=== PATIENT | male | born 1960 | race African-American/Black ===

== ENCOUNTER 2017-03-20 15:23 | Inpatient (IN) | payer OTHER ==
[2017-03-20] MEDS ORDERED: MORPHINE IV ONE (17:38)
[2017-03-20] MEDS ORDERED: NACL 0.9% 1000 ML 1,000 ML IV ONE ×2 (17:38→21:12)
[2017-03-20] MEDS ORDERED: ZOFRAN ODT PO/SL ONE (17:38)
--- NOTE | 2017-03-20 17:40 | Emergency Department Report ---
Chief Complaint: Abdominal Pain Stated Complaint: ABD PAIN Time Seen by Provider: 03/20/17 17:11 - HPI History of Present Illness: Patient is a Syriac [place] gentleman and 56 years old who is presenting with epigastric pain patient states that prior to arrival approximately 2 hours ago after eating he started experiencing excruciating 10 out of 10 pain in the epigastrium. Patient states there is no radiation there is no nausea vomiting fever or diarrhea. Patient states it's a ripping tearing pain in the mid abdomen. The patient will have IV labs and CT ordered pain medicine has been given. - Exam Vital Signs: Vital Signs 03/20/17 15:32 Temperature 98.2 F Pulse Rate 70 Respiratory 18 Rate Blood Pressure 99/72 O2 Sat by Pulse 98 Oximetry MSE screening note: Focused history and physical exam performed. Due to findings the following was ordered: ED Disposition for MSE Condition: Stable
[2017-03-20 18:10] LABS: Basophils % (Auto) 0.4 % (0.0-1.8); Eosinophils % (Auto) 0.8 % (0.0-4.3); Hematocrit 43.1 % (35.5-45.6); Hemoglobin 14.1 gm/dl (11.8-15.2); Mean Corpuscular HGB Conc 33 % (32-34); Mean Corpuscular Hemoglobin 31 pg (28-32); Mean Corpuscular Volume 96 fl (84-94); Platelet Count 267 K/mm3 (140-440); Red Blood Count 4.48 M/mm3 (3.65-5.03); White Blood Count 16.2 K/mm3 (4.5-11.0)
[2017-03-20 18:29] LABS: Alanine Aminotransferase 95 units/L (7-56); Albumin 4.5 g/dL (3.9-5); Albumin/Globulin Ratio 1.6 %; Alkaline Phosphatase 89 units/L (35-129); Anion Gap 17 mmol/L; BUN/Creatinine Ratio 24; Blood Urea Nitrogen 17 mg/dL (9-20); Calcium 8.9 mg/dL (8.4-10.2); Carbon Dioxide 27 mmol/L (22-30); Chloride 99.2 mmol/L (98-107); Glucose 110 mg/dL (75-100); Lipase 28 units/L (13-60); Potassium 4.6 mmol/L (3.6-5.0); Sodium 139 mmol/L (137-145); Total Protein 7.3 g/dL (6.3-8.2)
[2017-03-20 18:31] LABS: Bilirubin,Direct 0.2 mg/dL (0-0.2); Bilirubin,Indirect 0.3 mg/dL
[2017-03-20] MEDS ORDERED: PROTONIX IV ONE (19:00)
[2017-03-20 19:37] LABS: Bilirubin,Urine NEG (Negative); Blood,Urine SM (Negative); Ketones,Urine NEG (Negative); Leukocyte Esterase,Urine NEG (Negative); Mucus,Urine 1+ /HPF; Nitrite,Urine NEG (Negative); Protein,Urine <15 mg/dL mg/dL (Negative); Urobilinogen,Urine < 2.0 mg/dL (<2.0)
--- NOTE | 2017-03-20 20:08 | Cat Scan Report ---
FINAL REPORT EXAM: CT ABDOMEN PELVIS W CON HISTORY: Abdominal Pain TECHNIQUE: Axial images were performed from the lung bases to the pubic symphysis. Multiplanar reformats are performed on the acquisition scanner. Comparison: None FINDINGS: There is mild bilateral basal atelectasis. Normal enhancement and appearance of the liver, spleen, pancreas, bilateral adrenal glands and bilateral kidneys. There is right renal lateral cortical scar. Gallbladder is thick-walled and edematous appearing. Aorta and mesenteric vessels are unremarkable. There is air-filled moderately distended small bowel in the left central abdomen with fluid-filled bowel proximally. Normal appendix right lower quadrant. Urinary bladder is moderately distended. Prostate is not enlarged. Trace pericholecystic fluid is seen on the delayed phase images. There is no ureteral stone identified. There is a T11 superior endplate compression fracture which appears old. There is no retroperitoneal or mesenteric adenopathy. IMPRESSION: Thick-walled gallbladder with trace pericholecystic fluid suggestive of acute cholecystitis. Correlate with labs and clinical symptoms/exam. Mildly dilated air and fluid-filled small bowel loops in the left central abdomen may represent focal ileus. There is no definite transition zone. Early small-bowel obstruction cannot be excluded. No other acute pathology. Old right renal cortical scar and T11 compression fracture.
--- NOTE | 2017-03-20 20:49 | Emergency Department Report ---
ED Abdominal Pain HPI - General Chief Complaint: Abdominal Pain Stated Complaint: ABD PAIN Time Seen by Provider: 03/20/17 17:11 Source: family Mode of arrival: Wheelchair Limitations: Language Barrier (family at bedside to translate) - History of Present Illness Initial Comments: Patient is a 56-year-old gentleman that presented to the ER with abdominal pain in the epigastric region. States the pain right now is at a 3 out of 10. However when the first started it was 10 out of 10. He states that the pain was worse with eating. Patient denies fever and chills. Patient states when he was having the pain he had some chest pain and difficulty breathing.. MD Complaint: abdominal pain Location: epigastric Radiation: none Migration to: no migration Severity scale (0 -10): 3 Quality: aching, sharp Consistency: constant Improves With: rest Worsens With: eating Associated Symptoms: denies other symptoms - Related Data Allergies Allergy/AdvReac Type Severity Reaction Status Date / Time No Known Allergies Allergy Unverified 03/20/17 15:32 ED Review of Systems ROS: Stated complaint: ABD PAIN Other details as noted in HPI Constitutional: denies: chills, fever Eyes: denies: eye pain, eye discharge, vision change ENT: denies: ear pain, throat pain Respiratory: shortness of breath. denies: cough, wheezing Cardiovascular: chest pain. denies: palpitations Endocrine: no symptoms reported Gastrointestinal: abdominal pain. denies: nausea, diarrhea Genitourinary: denies: urgency, dysuria Musculoskeletal: denies: back pain, joint swelling, arthralgia Skin: denies: rash, lesions Neurological: denies: headache, weakness, paresthesias Psychiatric: denies: anxiety, depression Hematological/Lymphatic: denies: easy bleeding, easy bruising ED Past Medical Hx - Past Medical History Previous Medical History?: No - Family History Family history: no significant - Social History Smoking Status: Current Every Day Smoker Substance Use Type: Alcohol ED Physical Exam - General Limitations: No Limitations General appearance: alert, in no apparent distress - Head Head exam: Present: atraumatic, normocephalic - Eye Eye exam: Present: normal appearance - ENT ENT exam: Present: mucous membranes moist - Neck Neck exam: Present: normal inspection - Respiratory Respiratory exam: Present: normal lung sounds bilaterally. Absent: respiratory distress - Cardiovascular Cardiovascular Exam: Present: regular rate, normal rhythm. Absent: systolic murmur, diastolic murmur, rubs, gallop - GI/Abdominal GI/Abdominal exam: Present: soft, tenderness (epigastric tenderness. Right upper quadrant tenderness), normal bowel sounds - Rectal Rectal exam: Present: deferred - Extremities Exam Extremities exam: Present: normal inspection - Back Exam Back exam: Present: normal inspection - Neurological Exam Neurological exam: Present: alert, oriented X3 - Psychiatric Psychiatric exam: Present: normal affect, normal mood - Skin Skin exam: Present: warm, dry, intact, normal color. Absent: rash ED Course Vital Signs 03/20/17 03/20/17 15:32 20:00 Temperature 98.2 F Pulse Rate 70 Respiratory 18 18 Rate Blood Pressure 99/72 O2 Sat by Pulse 98 98 Oximetry ED Medical Decision Making - Lab Data Result diagrams: 03/20/17 17:48 03/20/17 17:48 - EKG Data -: EKG Interpreted by Sc EKG shows normal: sinus rhythm Rate: normal - EKG Data Interpretation: no acute changes, normal EKG - Radiology Data Radiology results: report reviewed CT scan reviewed. Positive for acute cholecystitis. - Medical Decision Making All labs and diagnostics reviewed. Discussed plan with patient. General surgery Dr. Ramirez consulted. Dr. Ramirez agrees that findings are consistent with acute cholecystitis and wants hospitalists to admit. per dr ramirez, nothing by mouth and IV fluids and IV antibiotics. Will consult hospitalist for admission. Dr. Villalba accepted patient. Dr. Villalba to assume care - Differential Diagnosis cp. sob. acute rick. Critical care attestation.: If time is entered above; I have spent that time in minutes in the direct care of this critically ill patient, excluding procedure time. ED Disposition Clinical Impression: Acute cholecystitis, Chest pain, Shortness of breath Disposition: OP ADMIT IP TO THIS HOSP Is pt being admited?: Yes Does the pt Need Aspirin: No Time of Disposition: 21:11
[2017-03-20 21:26] LABS: Creatine Kinase MB 1.3 ng/mL (0.0-4.0)
[2017-03-20 21:31] LABS: Creatine Kinase 95 units/L (55-170)
[2017-03-20] MEDS ORDERED: DULCOLAX PR PRN (21:54)
[2017-03-20] MEDS ORDERED: TYLENOL PO PRN (21:54)
[2017-03-20] MEDS ORDERED: MILK OF MAGNESIA PO PRN (21:54)
[2017-03-20] MEDS ORDERED: ZOFRAN IV PRN (21:54)
--- NOTE | 2017-03-20 21:58 | History and Physical Report ---
History of Present Illness Date of examination: 03/20/17 History of present illness: 56 year old man with no medical problems come to the emergency room with complaints of epigastric and right upper quadrant pain that started today. He describes it as a sharp pain, intermittent every 3 minuts, intensity 7/10, no radiation and he cannot identify exacerbating or relieving factors. Also complain of Review Of Systems: Constitutional: no weight loss Ears, eyes, nose, mouth and throat: no nasal congestion, no nasal discharge, no sinus pressure, blurry vision, diplopia Neck: No neck pain or rigidity. Cardiovascular: No chest pain, palpitations Respiratory: No cough Gastrointestinal: No hematochezia Genitourinary : no dysuria, frequency , hematuria Musculoskeletal: no muscle ache Integumentary: no rash, no pruritis Neurological: no parathesias, focal weakness Endocrine: no cold or heat intolerance, no polyuria or polydipsia Hematologic/Lymphatic: no easy bruising, no easy bleeding, no gland swelling Allergic/Immunologic: no urticaria, no angioedema. PAST MEDICAL HISTORY:None PAST SURGICAL HISTORY: None FAMILY HISTORY: Hypertension SOCIAL HISTORY:Smoke 1 pack /day, social alcohol, no drugs Medications and Allergies Allergies Allergy/AdvReac Type Severity Reaction Status Date / Time No Known Allergies Allergy Unverified 03/20/17 15:32 Home Medications Medication Instructions Recorded Confirmed Last Taken Type Acetaminophen [Tylenol Extra 2 1000units PO DAILY 03/20/17 03/20/17 03/19/17 History Strength] Ibuprofen [Advil 100 MG tab] 1 each PO DAILY 03/20/17 03/20/17 Unknown History Active Meds: Active Medications Sodium Chloride (Nacl 0.9% 1000 Ml) 1,000 mls @ 250 mls/hr IV ONCE ONE Stop: 03/21/17 01:11 Piperacillin Sod/Tazobactam Sod (Zosyn/Ns 3.375gm/50ml) 3.375 gm in 50 mls @ 100 mls/hr IV Q6HR BASILIO Exam - Physical Exam Narrative exam: Gen. appearance: Patient lying in bed in no acute distress HEENT: Normocephalic/atraumatic, pupils equal round reactive to light, extra occular movement intact, no scleral icterus, no JVD or thyromegaly or nodule, neck is supple, mucous membrane moist, no erythema or exudate Heart: S1-S2, regular rate and rhythm Lungs: Clear to auscultation bilateral breathing comfortable Abdomen: Positive bowel sounds, tender in the epigastric, RUQ, nondistended, no organomegaly Extremities: No edema, cyanosis, clubbing Neuro:: Oriented 3 , cranial nerves II-12 intact, speech, motor intact Skin: No rash, nodules, warm dry - Constitutional Vitals: Temp Pulse Resp BP Pulse Ox 98.2 F 70 18 99/72 98 03/20/17 15:32 03/20/17 15:32 03/20/17 20:00 03/20/17 15:32 03/20/17 20:00 Results - Labs CBC & Chem 7: 03/20/17 17:48 03/20/17 17:48 Labs: Abnormal lab results 03/20/17 03/20/17 Range/Units 17:48 17:48 WBC 16.2 H (4.5-11.0) K/mm3 MCV 96 H (84-94) fl RDW 13.0 L (13.2-15.2) % [place] # 1.1 H (0.0-0.8) K/mm3 Seg Neutrophils % 77.2 H (40.0-70.0) % Seg Neutrophils # 12.5 H (1.8-7.7) K/mm3 Creatinine 0.7 L (0.8-1.5) mg/dL Glucose 110 H (75-100) mg/dL AST 169 H (5-40) units/L ALT 95 H (7-56) units/L - Imaging and Cardiology CT scan - abdomen: report reviewed CT scan - pelvis: report reviewed Assessment and Plan Assessment Acute cholecystitis PLan Admit to medicine Place on bowel rest, start IV fluid, zosyn, morphine Consult surgery, check cardiac enzymes Dvt prophalaxis
[2017-03-21] MEDS ORDERED: ZOSYN/NS 3.375GM/50ML 3.375 GM/50 ML BAG IV SCH
[2017-03-21] MEDS: ZOSYN/NS 3.375GM/50ML 3.375 GM/50 ML BAG IV SCH ×4 (00:39→21:00)
[2017-03-21] MEDS: MORPHINE IV PRN (01:48)
[2017-03-21 04:18] LABS: Basophils % (Auto) 0.8 % (0.0-1.8); Eosinophils % (Auto) 4.6 % (0.0-4.3); Hematocrit 38.9 % (35.5-45.6); Hemoglobin 12.6 gm/dl (11.8-15.2); Mean Corpuscular HGB Conc 32 % (32-34); Mean Corpuscular Hemoglobin 31 pg (28-32); Mean Corpuscular Volume 97 fl (84-94); Platelet Count 240 K/mm3 (140-440); Red Blood Count 4.03 M/mm3 (3.65-5.03); White Blood Count 8.9 K/mm3 (4.5-11.0)
[2017-03-21 04:35] LABS: Anion Gap 14 mmol/L; BUN/Creatinine Ratio 20; Blood Urea Nitrogen 12 mg/dL (9-20); Calcium 8.1 mg/dL (8.4-10.2); Carbon Dioxide 25 mmol/L (22-30); Chloride 105.9 mmol/L (98-107); Glucose 106 mg/dL (75-100); Sodium 141 mmol/L (137-145)
[2017-03-21 04:37] LABS: Creatine Kinase MB 1.2 ng/mL (0.0-4.0)
[2017-03-21 04:40] LABS: Creatine Kinase 87 units/L (55-170); Potassium 3.6 mmol/L (3.6-5.0)
[2017-03-21] MEDS: NACL 0.9% 1000 ML 1,000 ML IV SCH ×2 (05:31→12:37)
[2017-03-21] MEDS ORDERED: REGLAN IV PRN (08:28)
[2017-03-21] MEDS ORDERED: LOVENOX SUB-Q SCH ×2 (10:00)
--- NOTE | 2017-03-21 12:00 | Progress Note ---
Assessment and Plan Assessment and plan: Son Fabian was Hungarian bridge welder his number is [phone] Patient is a 56-year-old Hungarian speaking man with a history of tobacco dependency who presented with abdominal pains. CT abdomen and pelvis with contrast reported as thick wall gallbladder trace stacy-cholecystic fluid suggestive of acute cholecystitis. Correlate with labs and clinical symptoms, mild dilated air and fluid filled small bowel loops in the left central abdomen may represent focal ileus, there is no definite transition zone, early small bowel obstruction cannot be excluded, no other acute pathology, old right renal cortical scar and T11 compression fracture. -Acute cholecystitis: Treated with IV antibiotics, pending general surgery consultation, nothing by mouth and IV fluids -Ileus: Nothing by mouth -Tobacco dependency: Supervisor Sunglasses stopping -Incidental T11 compression fracture: Pain control -DVT prophylaxis: Subcutaneous heparin in anticipation for surgery History Interval history: Patient was seen and examined. Follow-up on current diagnosis/abdominal pain which is improved. Overnight uneventful. Patient denies any chest pain, shortness breath, nausea/vomiting or severe headaches. Imaging, nursing note, chart, labs and old chart reviewed. Discussed with patient. Hospitalist Physical - Physical exam Narrative exam: GEN: WDWN, NAD, AWAKE, ALERT, ORIENTATED 3 HEENT: NCAT, EOMI, PERRL, OP Clear NECK: supple, no adenopathy, no thyromegaly, no JVD CVS/HEART: RRR, NORMAL S1S2, NO JVD, pulses present bilaterally CHEST/LUNGS: CTA B, Symmetrical chest expansion, good air entry bilaterally GI/Abdomen: soft, nondistended, mild right-sided tenderness, good bowel sounds, no guarding or rebound /Bladder: no suprapubic tenderness, no CVA or paraspinal tenderness EXT/Skin: no c/c/e, no obvious rash MSK: FROM x 4 Neuro: CN 2-12 grossly intact, no new focal deficits Psych: calm - Constitutional Vitals: Temp Pulse Resp BP Pulse Ox 97.9 F 59 L 18 98/72 96 03/21/17 08:50 03/21/17 08:50 03/21/17 08:50 03/21/17 08:50 03/21/17 09:09 Results - Labs CBC & Chem 7: 03/21/17 03:35 03/21/17 03:35 Labs: Laboratory Last Values WBC 8.9 K/mm3 (4.5-11.0) 03/21/17 03:35 RBC 4.03 M/mm3 (3.65-5.03) 03/21/17 03:35 Hgb 12.6 gm/dl (11.8-15.2) 03/21/17 03:35 Hct 38.9 % (35.5-45.6) 03/21/17 03:35 MCV 97 fl (84-94) H 03/21/17 03:35 MCH 31 pg (28-32) 03/21/17 03:35 MCHC 32 % (32-34) 03/21/17 03:35 RDW 13.0 % (13.2-15.2) L 03/21/17 03:35 Plt Count 240 K/mm3 (140-440) 03/21/17 03:35 Lymph % (Auto) 32.0 % (13.4-35.0) 03/21/17 03:35 [place] % (Auto) 7.6 % (0.0-7.3) H 03/21/17 03:35 Eos % (Auto) 4.6 % (0.0-4.3) H 03/21/17 03:35 Baso % (Auto) 0.8 % (0.0-1.8) 03/21/17 03:35 Lymph # 2.8 K/mm3 (1.2-5.4) 03/21/17 03:35 [place] # 0.7 K/mm3 (0.0-0.8) 03/21/17 03:35 Eos # 0.4 K/mm3 (0.0-0.4) 03/21/17 03:35 Baso # 0.1 K/mm3 (0.0-0.1) 03/21/17 03:35 Seg Neutrophils % 55.0 % (40.0-70.0) 03/21/17 03:35 Seg Neutrophils # 4.9 K/mm3 (1.8-7.7) 03/21/17 03:35 Sodium 141 mmol/L (137-145) 03/21/17 03:35 Potassium 3.6 mmol/L (3.6-5.0) D 03/21/17 03:35 Chloride 105.9 mmol/L (98-107) 03/21/17 03:35 Carbon Dioxide 25 mmol/L (22-30) 03/21/17 03:35 Anion Gap 14 mmol/L 03/21/17 03:35 BUN 12 mg/dL (9-20) 03/21/17 03:35 Creatinine 0.6 mg/dL (0.8-1.5) L 03/21/17 03:35 Estimated GFR > 60 ml/min 03/21/17 03:35 BUN/Creatinine Ratio 20 % 03/21/17 03:35 Glucose 106 mg/dL (75-100) H 03/21/17 03:35 Calcium 8.1 mg/dL (8.4-10.2) L 03/21/17 03:35 Total Bilirubin 0.50 mg/dL (0.1-1.2) 03/20/17 17:48 Direct Bilirubin 0.2 mg/dL (0-0.2) 03/20/17 17:48 Indirect Bilirubin 0.3 mg/dL 03/20/17 17:48 AST 169 units/L (5-40) H 03/20/17 17:48 ALT 95 units/L (7-56) H 03/20/17 17:48 Alkaline Phosphatase 89 units/L (35-129) 03/20/17 17:48 Total Creatine Kinase 87 units/L (55-170) 03/21/17 03:35 CK-MB (CK-2) 1.2 ng/mL (0.0-4.0) 03/21/17 03:35 CK-MB (CK-2) Rel Index 1.3 (0-4) 03/21/17 03:35 Troponin T < 0.010 ng/mL (0.00-0.029) 03/21/17 03:35 Total Protein 7.3 g/dL (6.3-8.2) 03/20/17 17:48 Albumin 4.5 g/dL (3.9-5) 03/20/17 17:48 Albumin/Globulin Ratio 1.6 % 03/20/17 17:48 Lipase 28 units/L (13-60) 03/20/17 17:48 Urine Color Yellow (Yellow) 03/20/17 18:07 Urine Turbidity Slightly-cloudy (Clear) 03/20/17 18:07 Urine pH 7.0 (5.0-7.0) 03/20/17 18:07 Ur Specific [place] 1.020 (1.003-1.030) 03/20/17 18:07 Urine Protein <15 mg/dl mg/dL (Negative) 03/20/17 18:07 Urine Glucose (UA) Neg mg/dL (Negative) 03/20/17 18:07 Urine Ketones Neg mg/dL (Negative) 03/20/17 18:07 Urine Blood Sm (Negative) 03/20/17 18:07 Urine Nitrite Neg (Negative) 03/20/17 18:07 Urine Bilirubin Neg (Negative) 03/20/17 18:07 Urine Urobilinogen < 2.0 mg/dL (<2.0) 03/20/17 18:07 Ur Leukocyte Esterase Neg (Negative) 03/20/17 18:07 Urine WBC (Auto) 1.0 /HPF (0.0-6.0) 03/20/17 18:07 Urine RBC (Auto) 4.0 /HPF (0.0-6.0) 03/20/17 18:07 Urine Mucus 1+ /HPF 03/20/17 18:07
--- NOTE | 2017-03-21 13:17 | Progress Note ---
Assessment and Plan Full consult dictated 56 y/o male admitted with epig abd pain. r/o acute cholecystitis on CT Abd soft, non tender at present. pt has not asked for pain meds reviewed CT with radiology. rec GB US and HIDA. labs as below wbc down with Zosyn will order US and HIDA Keep NPO will follow History of Present Illness Date of examination: 03/20/17 History of present illness: 56 year old man with no medical problems come to the emergency room with complaints of epigastric and right upper quadrant pain that started today. He describes it as a sharp pain, intermittent every 3 minuts, intensity 7/10, no radiation and he cannot identify exacerbating or relieving factors. Also complain of Review Of Systems: Constitutional: no weight loss Ears, eyes, nose, mouth and throat: no nasal congestion, no nasal discharge, no sinus pressure, blurry vision, diplopia Neck: No neck pain or rigidity. Cardiovascular: No chest pain, palpitations Respiratory: No cough Gastrointestinal: No hematochezia Genitourinary : no dysuria, frequency , hematuria Musculoskeletal: no muscle ache Integumentary: no rash, no pruritis Neurological: no parathesias, focal weakness Endocrine: no cold or heat intolerance, no polyuria or polydipsia Hematologic/Lymphatic: no easy bruising, no easy bleeding, no gland swelling Allergic/Immunologic: no urticaria, no angioedema. PAST MEDICAL HISTORY:None PAST SURGICAL HISTORY: None FAMILY HISTORY: Hypertension SOCIAL HISTORY:Smoke 1 pack /day, social alcohol, no drugs Selected Entries 03/21/17 08:50 Temperature 97.9 F Pulse Rate 59 L Blood Pressure 98/72 Laboratory Tests 03/20/17 03/21/17 03/21/17 17:48 03:35 03:35 WBC 8.9 Hgb 12.6 Hct 38.9 Sodium 141 Potassium 3.6 D Chloride 105.9 Carbon Dioxide 25 BUN 12 Creatinine 0.6 L Total Bilirubin 0.50 Direct Bilirubin 0.2 Indirect Bilirubin 0.3 AST 169 H ALT 95 H Alkaline Phosphatase 89 Objective Vital Signs - 12hr 03/21/17 03/21/17 03/21/17 08:15 08:50 09:09 Temperature 97.9 F Pulse Rate 59 L Respiratory 18 Rate Blood Pressure 98/72 O2 Sat by Pulse 94 91 96 Oximetry - Labs 03/21/17 03:35 03/21/17 03:35 Diabetes panel 03/20/17 03/21/17 Range/Units 17:48 03:35 Sodium 139 141 (137-145) mmol/L Potassium 4.6 3.6 D (3.6-5.0) mmol/L Chloride 99.2 105.9 (98-107) mmol/L Carbon Dioxide 27 25 (22-30) mmol/L BUN 17 12 (9-20) mg/dL Creatinine 0.7 L 0.6 L (0.8-1.5) mg/dL Glucose 110 H 106 H (75-100) mg/dL Calcium 8.9 8.1 L (8.4-10.2) mg/dL AST 169 H (5-40) units/L ALT 95 H (7-56) units/L Alkaline Phosphatase 89 (35-129) units/L Total Protein 7.3 (6.3-8.2) g/dL Albumin 4.5 (3.9-5) g/dL Calcium panel 03/20/17 03/21/17 Range/Units 17:48 03:35 Calcium 8.9 8.1 L (8.4-10.2) mg/dL Albumin 4.5 (3.9-5) g/dL Pituitary panel 03/20/17 03/21/17 Range/Units 17:48 03:35 Sodium 139 141 (137-145) mmol/L Potassium 4.6 3.6 D (3.6-5.0) mmol/L Chloride 99.2 105.9 (98-107) mmol/L Carbon Dioxide 27 25 (22-30) mmol/L BUN 17 12 (9-20) mg/dL Creatinine 0.7 L 0.6 L (0.8-1.5) mg/dL Glucose 110 H 106 H (75-100) mg/dL Calcium 8.9 8.1 L (8.4-10.2) mg/dL Adrenal panel 03/20/17 03/21/17 Range/Units 17:48 03:35 Sodium 139 141 (137-145) mmol/L Potassium 4.6 3.6 D (3.6-5.0) mmol/L Chloride 99.2 105.9 (98-107) mmol/L Carbon Dioxide 27 25 (22-30) mmol/L BUN 17 12 (9-20) mg/dL Creatinine 0.7 L 0.6 L (0.8-1.5) mg/dL Glucose 110 H 106 H (75-100) mg/dL Calcium 8.9 8.1 L (8.4-10.2) mg/dL Total Bilirubin 0.50 (0.1-1.2) mg/dL AST 169 H (5-40) units/L ALT 95 H (7-56) units/L Alkaline Phosphatase 89 (35-129) units/L Total Protein 7.3 (6.3-8.2) g/dL Albumin 4.5 (3.9-5) g/dL
[2017-03-21] MEDS ORDERED: WATER FOR INJ (PF) 10 ML ONE (14:07)
[2017-03-21] MEDS ORDERED: KINEVAC IV ONE ×2 (14:08→14:20)
[2017-03-21] MEDS ORDERED: WATER FOR INJ (PF) IV ONE (15:00)
--- NOTE | 2017-03-21 15:50 | Nuclear Medicine Report ---
NUCLEAR MEDICINE HEPATOBILIARY SCAN: 03/21/17 13:17:00 CLINICAL: Right upper quadrant abdominal pain. TECHNIQUE: 5.0mCi technetium 99m Choletec was injected intravenously. Serial images were obtained up to one hour. At one hour, 1.3 mcg of CCK was injected intravenously by slow infusion. The patient experienced the same abdominal pain with injection of the CCK. A gallbladder ejection fraction was calculated. FINDINGS: Normal activity in the liver, bile ducts and small bowel. Normal gallbladder activity is apparent at ten minutes. However, the gallbladder ejection fraction is abnormally low at 34%. IMPRESSION: No acute cholecystitis. However, abnormal gallbladder ejection fraction consistent with gallbladder dyskinesis or chronic cholecystitis.
[2017-03-21] MEDS ORDERED: D5W/0.45% NACL/KCL 30 MEQ 30 MEQ/1,000 ML BAG IV SCH (18:00)
--- NOTE | 2017-03-22 00:45 | Ultrasound Report ---
FINAL REPORT PROCEDURE: US ABDOMEN LIMITED TECHNIQUE: Real-time sonography was performed of the right upper quadrant with image documentation. CPT 93340 HISTORY: r/o cholecystitis COMPARISON: Prior CT scan abdomen and pelvis 03/20/2017 FINDINGS: The leon of the gallbladder appear diffusely thickened. There are small echogenic foci with ring down artifact suggesting adenomyomatosis of the gallbladder. No formed gallstones are seen. No ascites is visualized. Common bile duct is normal caliber measuring 6 millimeters. Intrahepatic ducts are not distended. Liver echogenicity mildly increased suggesting fatty infiltration. The liver is otherwise unremarkable. Visualized portions of the pancreas appear normal. Proximal abdominal aorta also appears normal. Renal cortical cyst measuring 1.4 centimeters seen in the renal cortex of the right kidney. The right kidney is otherwise unremarkable. IMPRESSION: Wall thickening is seen diffusely in the gallbladder with multiple areas of ring down artifact consistent with adenomyomatosis of the gallbladder. No definite gallstones are visualized. Renal cortical cyst visualize right kidney. Mild fatty infiltration of the liver. No other abnormalities are identified.
--- NOTE | 2017-03-22 03:08 | Consultation ---
REASON FOR CONSULTATION: Rule out acute cholecystitis. HISTORY OF PRESENT ILLNESS: The patient is a pleasant 56-year-old gentleman who does not speak [place]. Family is also in the room, but limited [place]. Thus, much of the history is obtained from the chart. The patient is a 56-year-old gentleman who was admitted through the Emergency Room last night with recent onset of epigastric abdominal pain. Denies any nausea or vomiting. PAST MEDICAL HISTORY: Essentially negative. PAST SURGICAL HISTORY: Negative. ALLERGIES: No known allergies. MEDICATIONS: No medications as far as I can tell. FAMILY HISTORY: Negative. SOCIAL HISTORY: Smokes a pack a day and occasional ethanol intake. No drugs. PHYSICAL EXAMINATION: GENERAL: At this time reveals the patient to be awake, alert, comfortable. States he is feeling " than from when he was admitted last night. VITAL SIGNS: Show him to be afebrile with a temperature 97.9, blood pressure is 106/75, pulse of 61, respirations of 18. HEENT: Pupils are equal and reactive to light and accommodation. Sclerae are nonicteric. ABDOMEN: Examination of the abdomen reveals it to be flat and soft at this time. No tenderness can be elicited at present. Bowel sounds are present. LABORATORY DATA: Lab work at present includes a CBC, which shows a white count of 8.9 down from 16.2 on admission. The patient was started on Zosyn on admission. H and H is 12.6 and 38.9. Electrolytes were essentially normal including sodium 141, potassium 3.6, chloride 105, BUN is 12, creatinine is 0.6. LFTs are also essentially normal including a total bilirubin of 0.5, direct of 0.2. AST is 169 and ALT 95 both just slightly elevated. Alkaline phosphatase is 89. A CT scan of the abdomen was done, which I reviewed with the radiologist. There is some thickness of the gallbladder wall, but it is borderline as per Radiology. They are recommending to proceed with a gallbladder ultrasound and a HIDA scan. IMPRESSION: At this time is that of a 56-year-old healthy gentleman, rule out acute cholecystitis. PLAN: I would keep the patient n.p.o. Change IV fluids to D5 half with 30 of K to run in 125 mL an hour. Continue Zosyn. We will go ahead and order the HIDA scan with ejection fraction as well as a gallbladder ultrasound. We will follow closely with you. Thank you very much for the consultation. JOB# [id number] PHILIP/CAIN
[2017-03-22 05:00] LABS: Hematocrit 38.1 % (35.5-45.6); Hemoglobin 12.7 gm/dl (11.8-15.2); Mean Corpuscular HGB Conc 33 % (32-34); Mean Corpuscular Hemoglobin 32 pg (28-32); Mean Corpuscular Volume 96 fl (84-94); Platelet Count 225 K/mm3 (140-440); Red Blood Count 3.97 M/mm3 (3.65-5.03); Red Cell Distribution Width 12.6 % (13.2-15.2); White Blood Count 7.4 K/mm3 (4.5-11.0)
[2017-03-22 05:17] LABS: INR 0.96 (0.87-1.13)
[2017-03-22 05:18] LABS: Partial Thromboplastin Time 32.2 Sec. (24.2-36.6)
[2017-03-22 05:21] LABS: Alanine Aminotransferase 44 units/L (7-56); Albumin 3.4 g/dL (3.9-5); Albumin/Globulin Ratio 1.5 %; Alkaline Phosphatase 70 units/L (35-129); Amylase 54 units/L (27-131); Anion Gap 14 mmol/L; BUN/Creatinine Ratio 14; Blood Urea Nitrogen 10 mg/dL (9-20); Calcium 8.1 mg/dL (8.4-10.2); Carbon Dioxide 25 mmol/L (22-30); Chloride 105.3 mmol/L (98-107); Glucose 120 mg/dL (75-100); Potassium 3.7 mmol/L (3.6-5.0); Sodium 141 mmol/L (137-145); Total Protein 5.6 g/dL (6.3-8.2)
[2017-03-22] MEDS: ZOSYN/NS 3.375GM/50ML 3.375 GM/50 ML BAG IV SCH ×2 (05:46→15:33)
[2017-03-22] MEDS: D5W/0.45% NACL/KCL 30 MEQ 30 MEQ/1,000 ML BAG IV SCH ×2 (06:30→16:18)
[2017-03-22] MEDS: MORPHINE IV PRN (09:37)
--- NOTE | 2017-03-22 10:16 | Progress Note ---
Assessment and Plan pt sitting up in chair talking on phone. appears comfortable. NAD. denies pain Abd soft, non tender labs as below: LFT's down to wnl (passed small CBD stone?) HIDA - GB visualized -- no acute cholecystitis. slightly low EF of 34% GB US confirms slight GB wall inflammation but no stones stable biliary dyskenesia passed small gallstone? no clinical or radiographic evidence of acute GB at this time attempt low fat cl liq diet Selected Entries 03/22/17 07:32 Temperature 98.5 F Pulse Rate 61 Respiratory 20 Rate Blood Pressure 106/68 Laboratory Tests 03/20/17 03/22/17 03/22/17 17:48 04:38 04:38 WBC 7.4 Hgb 12.7 Hct 38.1 Sodium 141 Potassium 3.7 Chloride 105.3 Carbon Dioxide 25 BUN 10 Creatinine 0.7 L Total Bilirubin 0.90 AST 169 H 24 ALT 95 H 44 Alkaline Phosphatase 89 70 Objective Vital Signs - 12hr 03/21/17 03/22/17 23:32 07:32 Temperature 98.3 F 98.5 F Pulse Rate 64 61 Respiratory 18 20 Rate Blood Pressure 105/72 106/68 O2 Sat by Pulse 96 97 Oximetry - Labs 03/22/17 04:38 03/22/17 04:38 Diabetes panel 03/22/17 Range/Units 04:38 Sodium 141 (137-145) mmol/L Potassium 3.7 (3.6-5.0) mmol/L Chloride 105.3 (98-107) mmol/L Carbon Dioxide 25 (22-30) mmol/L BUN 10 (9-20) mg/dL Creatinine 0.7 L (0.8-1.5) mg/dL Glucose 120 H (75-100) mg/dL Calcium 8.1 L (8.4-10.2) mg/dL AST 24 (5-40) units/L ALT 44 (7-56) units/L Alkaline Phosphatase 70 (35-129) units/L Total Protein 5.6 L D (6.3-8.2) g/dL Albumin 3.4 L (3.9-5) g/dL Calcium panel 03/22/17 Range/Units 04:38 Calcium 8.1 L (8.4-10.2) mg/dL Albumin 3.4 L (3.9-5) g/dL Pituitary panel 03/22/17 Range/Units 04:38 Sodium 141 (137-145) mmol/L Potassium 3.7 (3.6-5.0) mmol/L Chloride 105.3 (98-107) mmol/L Carbon Dioxide 25 (22-30) mmol/L BUN 10 (9-20) mg/dL Creatinine 0.7 L (0.8-1.5) mg/dL Glucose 120 H (75-100) mg/dL Calcium 8.1 L (8.4-10.2) mg/dL Adrenal panel 03/22/17 Range/Units 04:38 Sodium 141 (137-145) mmol/L Potassium 3.7 (3.6-5.0) mmol/L Chloride 105.3 (98-107) mmol/L Carbon Dioxide 25 (22-30) mmol/L BUN 10 (9-20) mg/dL Creatinine 0.7 L (0.8-1.5) mg/dL Glucose 120 H (75-100) mg/dL Calcium 8.1 L (8.4-10.2) mg/dL Total Bilirubin 0.90 (0.1-1.2) mg/dL AST 24 (5-40) units/L ALT 44 (7-56) units/L Alkaline Phosphatase 70 (35-129) units/L Total Protein 5.6 L D (6.3-8.2) g/dL Albumin 3.4 L (3.9-5) g/dL
[2017-03-22] MEDS: HEPARIN SUB-Q SCH ×3 (11:11→23:05)
--- NOTE | 2017-03-22 11:42 | Progress Note ---
Assessment and Plan Assessment and plan: Son Fabian was [place] software engineering manager his number is [phone] Patient is a 56-year-old Argentine speaking man with a history of tobacco dependency who presented with abdominal pains. CT abdomen and pelvis with contrast reported as thick wall gallbladder trace stacy-cholecystic fluid suggestive of acute cholecystitis. Correlate with labs and clinical symptoms, mild dilated air and fluid filled small bowel loops in the left central abdomen may represent focal ileus, there is no definite transition zone, early small bowel obstruction cannot be excluded, no other acute pathology, old right renal cortical scar and T11 compression fracture. -Acute cholecystitis: Treated with IV antibiotics, pending general surgery consultation, nothing by mouth and IV fluids -Ileus: Nothing by mouth -Tobacco dependency: Physical Therapist stopping -Incidental T11 compression fracture: Pain control -DVT prophylaxis: Subcutaneous heparin in anticipation for surgery HIDA scan reported as no acute cholecystitis, however abnormal gallbladder ejection fraction consistent with gallbladder dyskinesia or chronic cholecystitis -Gallbladder dyskinesia: Management per surgery, called Dr. Ko, await call back. ?surgery, ?discharge. Diet to start History Interval history: Patient was seen and examined. Follow-up on current diagnosis/abdominal pain which is improved. Overnight uneventful. Patient denies any chest pain, shortness breath, nausea/vomiting or severe headaches. Imaging, nursing note, chart, labs and old chart reviewed. Discussed with patient. Hospitalist Physical - Physical exam Narrative exam: GEN: WDWN, NAD, AWAKE, ALERT, ORIENTATED 3 HEENT: NCAT, EOMI, PERRL, OP Clear NECK: supple, no adenopathy, no thyromegaly, no JVD CVS/HEART: RRR, NORMAL S1S2, NO JVD, pulses present bilaterally CHEST/LUNGS: CTA B, Symmetrical chest expansion, good air entry bilaterally GI/Abdomen: soft, nondistended, mild right-sided tenderness, good bowel sounds, no guarding or rebound /Bladder: no suprapubic tenderness, no CVA or paraspinal tenderness EXT/Skin: no c/c/e, no obvious rash MSK: FROM x 4 Neuro: CN 2-12 grossly intact, no new focal deficits Psych: calm - Constitutional Vitals: Temp Pulse Resp BP Pulse Ox 98.5 F 61 20 106/68 97 03/22/17 07:32 03/22/17 07:32 03/22/17 07:32 03/22/17 07:32 03/22/17 07:32 Results - Labs CBC & Chem 7: 03/22/17 04:38 03/22/17 04:38 Labs: Laboratory Last Values WBC 7.4 K/mm3 (4.5-11.0) 03/22/17 04:38 RBC 3.97 M/mm3 (3.65-5.03) 03/22/17 04:38 Hgb 12.7 gm/dl (11.8-15.2) 03/22/17 04:38 Hct 38.1 % (35.5-45.6) 03/22/17 04:38 MCV 96 fl (84-94) H 03/22/17 04:38 MCH 32 pg (28-32) 03/22/17 04:38 MCHC 33 % (32-34) 03/22/17 04:38 RDW 12.6 % (13.2-15.2) L 03/22/17 04:38 Plt Count 225 K/mm3 (140-440) 03/22/17 04:38 Lymph % (Auto) 31.3 % (13.4-35.0) 03/22/17 04:38 [place] % (Auto) 7.4 % (0.0-7.3) H 03/22/17 04:38 Eos % (Auto) 4.0 % (0.0-4.3) 03/22/17 04:38 Baso % (Auto) 1.0 % (0.0-1.8) 03/22/17 04:38 Lymph # 2.3 K/mm3 (1.2-5.4) 03/22/17 04:38 [place] # 0.5 K/mm3 (0.0-0.8) 03/22/17 04:38 Eos # 0.3 K/mm3 (0.0-0.4) 03/22/17 04:38 Baso # 0.1 K/mm3 (0.0-0.1) 03/22/17 04:38 Seg Neutrophils % 56.3 % (40.0-70.0) 03/22/17 04:38 Seg Neutrophils # 4.2 K/mm3 (1.8-7.7) 03/22/17 04:38 PT 13.3 Sec. (12.2-14.9) 03/22/17 04:38 INR 0.96 (0.87-1.13) 03/22/17 04:38 APTT 32.2 Sec. (24.2-36.6) 03/22/17 04:38 Sodium 141 mmol/L (137-145) 03/22/17 04:38 Potassium 3.7 mmol/L (3.6-5.0) 03/22/17 04:38 Chloride 105.3 mmol/L (98-107) 03/22/17 04:38 Carbon Dioxide 25 mmol/L (22-30) 03/22/17 04:38 Anion Gap 14 mmol/L 03/22/17 04:38 BUN 10 mg/dL (9-20) 03/22/17 04:38 Creatinine 0.7 mg/dL (0.8-1.5) L 03/22/17 04:38 Estimated GFR > 60 ml/min 03/22/17 04:38 BUN/Creatinine Ratio 14 % 03/22/17 04:38 Glucose 120 mg/dL (75-100) H 03/22/17 04:38 Calcium 8.1 mg/dL (8.4-10.2) L 03/22/17 04:38 Total Bilirubin 0.90 mg/dL (0.1-1.2) 03/22/17 04:38 Direct Bilirubin 0.2 mg/dL (0-0.2) 03/20/17 17:48 Indirect Bilirubin 0.3 mg/dL 03/20/17 17:48 AST 24 units/L (5-40) 03/22/17 04:38 ALT 44 units/L (7-56) 03/22/17 04:38 Alkaline Phosphatase 70 units/L (35-129) 03/22/17 04:38 Total Creatine Kinase 87 units/L (55-170) 03/21/17 03:35 CK-MB (CK-2) 1.2 ng/mL (0.0-4.0) 03/21/17 03:35 CK-MB (CK-2) Rel Index 1.3 (0-4) 03/21/17 03:35 Troponin T < 0.010 ng/mL (0.00-0.029) 03/21/17 03:35 Total Protein 5.6 g/dL (6.3-8.2) L D 03/22/17 04:38 Albumin 3.4 g/dL (3.9-5) L 03/22/17 04:38 Albumin/Globulin Ratio 1.5 % 03/22/17 04:38 Amylase 54 units/L (27-131) 03/22/17 04:38 Lipase 28 units/L (13-60) 03/20/17 17:48 Urine Color Yellow (Yellow) 03/20/17 18:07 Urine Turbidity Slightly-cloudy (Clear) 03/20/17 18:07 Urine pH 7.0 (5.0-7.0) 03/20/17 18:07 Ur Specific [place] 1.020 (1.003-1.030) 03/20/17 18:07 Urine Protein <15 mg/dl mg/dL (Negative) 03/20/17 18:07 Urine Glucose (UA) Neg mg/dL (Negative) 03/20/17 18:07 Urine Ketones Neg mg/dL (Negative) 03/20/17 18:07 Urine Blood Sm (Negative) 03/20/17 18:07 Urine Nitrite Neg (Negative) 03/20/17 18:07 Urine Bilirubin Neg (Negative) 03/20/17 18:07 Urine Urobilinogen < 2.0 mg/dL (<2.0) 03/20/17 18:07 Ur Leukocyte Esterase Neg (Negative) 03/20/17 18:07 Urine WBC (Auto) 1.0 /HPF (0.0-6.0) 03/20/17 18:07 Urine RBC (Auto) 4.0 /HPF (0.0-6.0) 03/20/17 18:07 Urine Mucus 1+ /HPF 03/20/17 18:07
[2017-03-22] MEDS ORDERED: Fluarix Quad 2017-2018(36 MOS+ IM ONE (12:00)
[2017-03-23] MEDS: ZOSYN/NS 3.375GM/50ML 3.375 GM/50 ML BAG IV SCH ×4 (01:08→17:50)
[2017-03-23] MEDS: D5W/0.45% NACL/KCL 30 MEQ 30 MEQ/1,000 ML BAG IV SCH (02:03)
[2017-03-23] MEDS: HEPARIN SUB-Q SCH ×2 (06:00→13:44)
--- NOTE | 2017-03-23 11:11 | Progress Note ---
Assessment and Plan Pt feeling well without compl. marco liq diet without incident Abd soft, non tender surgically stable may advance to solid low fat diet as marco consider d/c if solid diet marco will need po Levaquin x 7 days rto this Saturday for f/u will schedule semi-elective lap GB as out pt in I to 2 wks after acute inflammation has subsided Selected Entries 03/23/17 07:41 Temperature 98.3 F Pulse Rate 59 L Respiratory 18 Rate Blood Pressure 103/70 Objective Vital Signs - 12hr 03/22/17 03/23/17 03/23/17 23:50 05:30 05:31 Temperature 97.6 F 97.4 F L Pulse Rate 54 L 53 L Pulse Rate [ 60 Right Radial] Respiratory 18 16 16 Rate Blood Pressure 114/73 O2 Sat by Pulse 98 97 96 Oximetry 03/23/17 07:41 Temperature 98.3 F Pulse Rate 59 L Pulse Rate [ Right Radial] Respiratory 18 Rate Blood Pressure 103/70 O2 Sat by Pulse 96 Oximetry - Labs 03/22/17 04:38 03/22/17 04:38
--- NOTE | 2017-03-23 12:55 | Discharge Summary ---
Providers - Providers Date of Admission: 03/20/17 21:54 Date of discharge: 03/23/17 Attending physician: BAYRON KAUFFMAN 03/20/17 21:06 Consult to Physician [CONS] Routine Consulting Provider: ANTHONY KO Reason For Exam: abd pain. acute rick Place consult to:: Dr. Ko Notified:: Answering Service Phone number called:: [phone] Was contact made?: Yes If yes, spoke with:: Dr. Ko Time called:: 21:01 Comment:: Dr. Morales (er dr) spoke with Dr. Ko Primary care physician: ICE PLATFORM SUPERVISOR Hospitalization Condition: Stable Hospital course: Son Ty was [place]riot spanish interpreter/translator his number is [phone] Patient is a 56-year-old Cypriot speaking man with a history of tobacco dependency who presented with abdominal pains. CT abdomen and pelvis with contrast reported as thick wall gallbladder trace stacy-cholecystic fluid suggestive of acute cholecystitis. Correlate with labs and clinical symptoms, mild dilated air and fluid filled small bowel loops in the left central abdomen may represent focal ileus, there is no definite transition zone, early small bowel obstruction cannot be excluded, no other acute pathology, old right renal cortical scar and T11 compression fracture ( spoke with son regarding t11 fracture, pt denies back pains) HIDA scan reported as no acute cholecystitis, however abnormal gallbladder ejection fraction consistent with gallbladder dyskinesia or chronic cholecystitis -Acute cholecystitis: Treated with IV antibiotics, pending general surgery consultation, nothing by mouth and IV fluids -Ileus: Nothing by mouth -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 Ko, await call back. ?surgery, ?discharge. Diet to start==>d/w Dr. Ko, start diet today, if he tolerates advance to regular tomorrow and if he tolerates that he can go home tomorrow evening and follow up Dr. Corona office in 1-2 weeks 03/23/[address] Ko: "Pt feeling well without compl. marco liq diet without incident Abd soft, non tender surgically stable may advance to solid low fat diet as marco consider d/c if solid diet marco will need po Levaquin x 7 days rto this Saturday for f/u will schedule semi-elective lap GB as out pt in I to 2 wks after acute inflammation has subsided" Disposition: DC- TO HOME OR SELFCARE Time spent for discharge: 35 minutes Core Measure Documentation - Palliative Care Palliative Care/ Comfort Measures: Not Applicable - Core Measures Any of the following diagnoses?: none - VTE Discharge Requirements Deep Vein Thrombosis/Pulmonary Embolism Present on Admission: No Has pt received <5 days of overlap therapy or INR<2.0: No Anticoagulant overlap therapy prescribed at discharge: No Contraindication No Overlap Therapy order at DC: Not Indicated Exam - Physical Exam Narrative exam: GEN: WDWN, NAD, AWAKE, ALERT, ORIENTATED 3 HEENT: NCAT, EOMI, PERRL, OP Clear NECK: supple, no adenopathy, no thyromegaly, no JVD CVS/HEART: RRR, NORMAL S1S2, NO JVD, pulses present bilaterally CHEST/LUNGS: CTA B, Symmetrical chest expansion, good air entry bilaterally GI/Abdomen: soft, nondistended, mild right-sided tenderness, good bowel sounds, no guarding or rebound /Bladder: no suprapubic tenderness, no CVA or paraspinal tenderness EXT/Skin: no c/c/e, no obvious rash MSK: FROM x 4 Neuro: CN 2-12 grossly intact, no new focal deficits Psych: calm - Constitutional Vitals: Temp Pulse Resp BP Pulse Ox 98.3 F 59 L 18 103/70 96 03/23/17 07:41 03/23/17 07:41 03/23/17 07:41 03/23/17 07:41 03/23/17 07:41 Plan Activity: other (no strenous activity until cleared by surgeon. ) Diet: advance as tolerated Follow up with: RADHA PONCE MD [Primary Care Provider] - 3-5 Days ANTHONY KO MD [Staff Physician] - 03/25/17 Prescriptions: Acetaminophen [Tylenol Extra Strength] 500 mg PO Q6H PRN #30 tablet PRN Reason: For Pain/Fever/Headache HYDROcodone/APAP 5-325 [[place] 5/325] 1 each PO Q4HR PRN #10 tablet PRN Reason: Pain , Severe (7-10) Levofloxacin [Levaquin] 750 mg PO QDAY #7 day
[2017-03-23 19:07] VITALS: BP 91/54
== END 2017-03-23 18:10 | disposition home or self-care (01) | DRG 445 ==
LOC: ED 15:23 → 3A 21:54
PROVIDERS: ADMIT Internal Medicine; ATTEND Internal Medicine
PROC: 3E0234Z Introduction of Serum, Toxoid and Vaccine into Muscle, Percutaneous Approach (ICD-10-PCS; principal; 2017-03-20)
DX: K81.0 Acute cholecystitis (principal); K56.7 Ileus, unspecified; S22.9XXA Fracture of bony thorax, part unspecified, initial encounter for closed fracture; Z23 Encounter for immunization; F17.200 Nicotine dependence, unspecified, uncomplicated; Z82.49 Family history of ischemic heart disease and other diseases of the circulatory system; Z71.6 Tobacco abuse counseling; K82.8 Other specified diseases of gallbladder
CPT/HCPCS: 36415; 74177; 76705; 78227; 80048; 80053; 80074; 81001; 82150; 82550; 82553; 83690; 84484; 85025; 85027; 85610; 85730; 90686; 93005; 93010; 96361; 96374; 96375; A9537; C9113; J1644; J2270; J2543; J2805; J7030; Q0162; Q9967

== ENCOUNTER 2017-04-10 07:14 | Observation (INO) | payer OTHER ==
[~2017-04-10 07:14] MED LIST: MARCAINE 0.5% INFILTRATI ONE; ceFAZolin 2 GM in NACL 0.9% 100 ML IV ONE
[2017-04-10] MEDS ORDERED: NACL BACTERIOSTATIC INFILTRATI ONE (08:12)
[2017-04-10] MEDS ORDERED: MARCAINE 0.5% 30 ML INFILTRATI ONE (08:28)
[2017-04-10 08:34] LABS: Basophils # (Auto) 0.1 K/mm3 (0.0-0.1); Eosinophils # (Auto) 0.5 K/mm3 (0.0-0.4); Eosinophils % (Auto) 5.2 % (0.0-4.3); Hematocrit 42.2 % (35.5-45.6); Hemoglobin 14.4 gm/dl (11.8-15.2); Lymphocytes # (Auto) 2.6 K/mm3 (1.2-5.4); Lymphocytes % (Auto) 28.9 % (13.4-35.0); Mean Corpuscular HGB Conc 34 % (32-34); Mean Corpuscular Hemoglobin 33 pg (28-32); Mean Corpuscular Volume 96 fl (84-94); Monocytes # (Auto) 0.6 K/mm3 (0.0-0.8); Monocytes % (Auto) 6.6 % (0.0-7.3); Platelet Count 249 K/mm3 (140-440); Red Blood Count 4.41 M/mm3 (3.65-5.03); Red Cell Distribution Width 12.9 % (13.2-15.2)
--- NOTE | 2017-04-10 08:35 | Anesthesia Consultation ---
Anesthesia Consult and Med Hx - Airway Anesthetic Teeth Evaluation: Partials ROM Head & Neck: Adequate Mental/Hyoid Distance: Adequate Mallampati Class: Class III Intubation Access Assessment: Possibly Difficult - Pulmonary Exam CTA: Yes - Pre-Operative Health Status ASA Pre-Surgery Classification: ASA2 - Pulmonary Hx Smoking: Yes (HEAVY, FOR OVER 20 YEARS) Hx Asthma: No COPD: No Hx Pneumonia: No - Central Nervous System Hx Neuromuscular Disorder: Yes (T11 compression fracture) Hx Psychiatric Problems: No - Endocrine Hx End Stage Renal Disease: No - Other Systems Hx Alcohol Use: Yes (OCCAS) Hx Substance Use: No Hx Cancer: No
--- NOTE | 2017-04-10 08:36 | Anesthesia Day of Surgery ---
Anesthesia Day of Surgery - Day of Surgery Patient Examined: Yes Patient H&P Reviewed: Yes Patient is NPO: Yes
[2017-04-10] MEDS ORDERED: LACTATED RINGERS 1,000 ML IV SCH (08:40)
[2017-04-10] MEDS ORDERED: VERSED IV NR (08:41)
[2017-04-10 08:42] LABS: Alanine Aminotransferase 33 units/L (7-56); Albumin 4.3 g/dL (3.9-5); BUN/Creatinine Ratio 28; Blood Urea Nitrogen 17 mg/dL (9-20); Calcium 8.7 mg/dL (8.4-10.2); Hemolysis Index 33
[2017-04-10] MEDS ORDERED: PEPCID IV NR (09:00)
[2017-04-10] MEDS ORDERED: ceFAZolin 2 GM in NACL 0.9% 100 ML IV ONE (10:00)
[2017-04-10] MEDS ORDERED: ANCEF/STERILE WATER 2 GM/20 ML 2 GM/20 ML SYRINGE IV ONE (10:00)
[2017-04-10] MEDS ORDERED: MARCAINE 0.5% INFILTRATI ONE (11:30)
[2017-04-10] MEDS ORDERED: PERCOCET 5/325 PO PRN (11:42)
[2017-04-10] MEDS ORDERED: ZOFRAN IV PRN (11:42)
[2017-04-10] MEDS ORDERED: XYLOCAINE MPF 2% ONE ×2 (11:56)
[2017-04-10] MEDS ORDERED: TORADOL ONE (11:57)
[2017-04-10] MEDS ORDERED: ROBINUL ONE ×2 (11:57)
[2017-04-10] MEDS ORDERED: NEOSTIGMINE ONE (11:57)
[2017-04-10] MEDS ORDERED: DECADRON ONE (11:57)
[2017-04-10] MEDS ORDERED: ZEMURON IV ONE (11:57)
[2017-04-10] MEDS ORDERED: DILAUDID ONE (11:58)
[2017-04-10] MEDS ORDERED: NEO SYNEPHRINE/NS Syringe(OR USE) IV ONE (11:58)
[2017-04-10] MEDS ORDERED: DIPRIVAN 10 MG/ML IV ONE (11:58)
[2017-04-10] MEDS ORDERED: LACTATED RINGERS 1,000 ML ONE (12:01)
--- NOTE | 2017-04-10 12:10 | Post Anesthesia Evaluation ---
- Post Anesthesia Evaluation Patient Participated: Yes Airway Patent: Yes Stable Respiratory Function: Yes Temp > 96.8F: Yes Pain Manageable: Yes Adequeate Hydration: Yes Anesthesia Complications: No
--- NOTE | 2017-04-10 12:23 | Operative Report ---
PREOPERATIVE DIAGNOSIS: Rule out cholecystitis. POSTOPERATIVE DIAGNOSIS: Cholecystitis with extensive adhesions involving the omentum as well as the small bowel and the surrounding phlegmon around the gallbladder. PROCEDURE: 1. Laparoscopic lysis of extensive intra-abdominal adhesions including omentum and small bowel. 2. Laparoscopic cholecystectomy, difficult case secondary to the extensive adhesions. SURGEON: Adrian Ko M.D. CARE TRANSITIONS NURSE: Dr. Minor. ANESTHESIA: General. ESTIMATED BLOOD LOSS: Minimal. DRAINS: None. COMPLICATIONS: None. DESCRIPTION OF PROCEDURE: The patient was taken to the operating room and prepped and draped in usual sterile fashion. Veress needle was inserted and CO2 insufflation begun. A 5 mm trocar was inserted and camera inserted. Upon entrance into the abdomen, a fair amount of adhesions were noted encompassing the right upper quadrant of the abdomen. Two lateral 5 mm ports were then inserted and the camera angle changed. Again, extensive adhesions were noted and small bowel was noted to be involved in the adhesions. A slow and tedious dissection was carried out as much as could be done from the right side until the gallbladder was visualized. The gallbladder itself appeared that it had a chance of possibly being removed laparoscopically. Thus, it was decided to continue lysing all the adhesions in the right upper quadrant. Two lateral left 5 mm ports were then inserted and the dissection was carried out and completed from the opposite side of the abdomen. At this point, the subxiphoid trocar was also inserted. Gallbladder was then grasped at the fundus and infundibulum and retracted towards the right subphrenic space. Dissection was then carried out along Calot's triangle. The cystic duct and artery were delineated in their entire course. Both were then doubly clipped and transected. Hook electrocautery was used to dissect the gallbladder from the overlying liver bed. Prior to complete removal, the liver bed was inspected for bleeding and noted to be dry. The cystic duct and artery stumps were once again visualized. The clips were noted to be securely in place with no evidence of bleeding or bile leak. The area of lysis of omentum and small bowel was carefully inspected. No evidence of iatrogenic injuries was noted. No bleeding or oozing noted. Gallbladder was then completely freed and brought out through the subxiphoid port. The entire right upper quadrant of the abdomen was then irrigated copiously and dried. Once again checked for hemostasis and noted to be dry. The subxiphoid trocar was then gently reinserted. All other 5 mm ports were removed under direct visualization. No bleeding or oozing noted. Subxiphoid trocar was then used to expel the CO2 and the trocar removed. The fascia at this site was closed with a [id number] 0 Vicryl suture. A 0.5% Marcaine was infiltrated over the port site for postoperative pain relief. All port sites were closed with 4-0 subcuticular Vicryl. Steri-Strips, 2 x 2s, and Tegaderms applied. The patient tolerated the procedure well, but due to the extensive amount of adhesions involving surrounding bowel and omentum, the patient will be kept at 23-hour observation for overnight observation. JOB# [id number] PHILIP/CAIN
[2017-04-10] MEDS: MORPHINE IV PRN ×2 (13:09→21:19)
[2017-04-11 06:25] LABS: Basophils % (Auto) 0.2 % (0.0-1.8); Hemoglobin 13.6 gm/dl (11.8-15.2); Lymphocytes # (Auto) 1.9 K/mm3 (1.2-5.4); Lymphocytes % (Auto) 11.5 % (13.4-35.0); Mean Corpuscular HGB Conc 33 % (32-34); Mean Corpuscular Hemoglobin 32 pg (28-32); Mean Corpuscular Volume 97 fl (84-94); Platelet Count 253 K/mm3 (140-440); Red Blood Count 4.22 M/mm3 (3.65-5.03); Red Cell Distribution Width 12.7 % (13.2-15.2)
[2017-04-11 06:33] LABS: Alanine Aminotransferase 79 units/L (7-56); Albumin 3.7 g/dL (3.9-5); BUN/Creatinine Ratio 23; Blood Urea Nitrogen 14 mg/dL (9-20); Calcium 8.8 mg/dL (8.4-10.2); Hemolysis Index 14
--- NOTE | 2017-04-11 11:20 | Progress Note ---
Assessment and Plan POD # 1 Pt feeling well without compl Abd soft, non tender begin cl liq diet was planning on d/c today if diet marco but concerned about elevated wbc? will observe x 24 more hrs. repeat cbc in am Selected Entries 04/11/17 07:16 Temperature 97.7 F Pulse Rate 74 O2 Sat by Pulse 96 Oximetry Blood Pressure 110/63 [Right] Laboratory Tests 04/10/17 04/11/17 04/11/17 08:15 05:50 05:50 WBC 8.9 16.7 H Hgb 14.4 13.6 Hct 42.2 41.0 Sodium 139 Potassium 4.4 Chloride 100.1 Carbon Dioxide 24 Anion Gap 19 BUN 14 Creatinine 0.6 L Total Bilirubin 0.70 AST 78 H ALT 79 H Alkaline Phosphatase 62 Objective Vital Signs - 12hr 04/11/17 04/11/17 04/11/17 01:30 01:34 05:24 Temperature 99.0 F 98.2 F Pulse Rate 71 67 Respiratory 17 18 Rate Blood Pressure 101/64 100/57 Blood Pressure [Right] O2 Sat by Pulse 96 97 Oximetry 04/11/17 07:16 Temperature 97.7 F Pulse Rate 74 Respiratory 18 Rate Blood Pressure Blood Pressure 110/63 [Right] O2 Sat by Pulse 96 Oximetry - Labs 04/11/17 05:50 04/11/17 05:50 Diabetes panel 04/11/17 Range/Units 05:50 Sodium 139 (137-145) mmol/L Potassium 4.4 (3.6-5.0) mmol/L Chloride 100.1 (98-107) mmol/L Carbon Dioxide 24 (22-30) mmol/L BUN 14 (9-20) mg/dL Creatinine 0.6 L (0.8-1.5) mg/dL Glucose 126 H (75-100) mg/dL Calcium 8.8 (8.4-10.2) mg/dL AST 78 H (5-40) units/L ALT 79 H (7-56) units/L Alkaline Phosphatase 62 (35-129) units/L Total Protein 6.4 (6.3-8.2) g/dL Albumin 3.7 L (3.9-5) g/dL Calcium panel 04/11/17 Range/Units 05:50 Calcium 8.8 (8.4-10.2) mg/dL Albumin 3.7 L (3.9-5) g/dL Pituitary panel 04/11/17 Range/Units 05:50 Sodium 139 (137-145) mmol/L Potassium 4.4 (3.6-5.0) mmol/L Chloride 100.1 (98-107) mmol/L Carbon Dioxide 24 (22-30) mmol/L BUN 14 (9-20) mg/dL Creatinine 0.6 L (0.8-1.5) mg/dL Glucose 126 H (75-100) mg/dL Calcium 8.8 (8.4-10.2) mg/dL Adrenal panel 04/11/17 Range/Units 05:50 Sodium 139 (137-145) mmol/L Potassium 4.4 (3.6-5.0) mmol/L Chloride 100.1 (98-107) mmol/L Carbon Dioxide 24 (22-30) mmol/L BUN 14 (9-20) mg/dL Creatinine 0.6 L (0.8-1.5) mg/dL Glucose 126 H (75-100) mg/dL Calcium 8.8 (8.4-10.2) mg/dL Total Bilirubin 0.70 (0.1-1.2) mg/dL AST 78 H (5-40) units/L ALT 79 H (7-56) units/L Alkaline Phosphatase 62 (35-129) units/L Total Protein 6.4 (6.3-8.2) g/dL Albumin 3.7 L (3.9-5) g/dL
[2017-04-11] MEDS: D5W/0.45% NACL/KCL 20 MEQ 20 MEQ/1,000 ML BAG IV SCH (19:38)
[2017-04-12 10:44] LABS: Basophils % (Auto) 0.4 % (0.0-1.8); Eosinophils # (Auto) 0.1 K/mm3 (0.0-0.4); Eosinophils % (Auto) 0.9 % (0.0-4.3); Hematocrit 39.3 % (35.5-45.6); Hemoglobin 12.9 gm/dl (11.8-15.2); Lymphocytes % (Auto) 27.5 % (13.4-35.0); Mean Corpuscular HGB Conc 33 % (32-34); Mean Corpuscular Hemoglobin 32 pg (28-32); Mean Corpuscular Volume 96 fl (84-94); Monocytes # (Auto) 0.9 K/mm3 (0.0-0.8); Monocytes % (Auto) 8.7 % (0.0-7.3); Platelet Count 233 K/mm3 (140-440); Red Blood Count 4.08 M/mm3 (3.65-5.03); Red Cell Distribution Width 12.8 % (13.2-15.2)
[2017-04-12] MEDS: D5W/0.45% NACL/KCL 20 MEQ 20 MEQ/1,000 ML BAG IV SCH (11:26)
--- NOTE | 2017-04-12 13:31 | Progress Note ---
Assessment and Plan POD # 2 Pt feeling well without compl. marco cl liq diet Abd soft, non tender wbc down. surgically stable full liq diet. d/c today if diet marco advance to solid low fat diet at home in am rto I wk Selected Entries 04/12/17 08:00 Temperature 98.2 F Pulse Rate 63 Respiratory 18 Rate Blood Pressure 100/61 [Right] Laboratory Tests 04/11/17 04/12/17 05:50 10:21 WBC 16.7 H 10.9 Hgb 12.9 Hct 39.3 Objective Vital Signs - 12hr 04/12/17 04/12/17 04/12/17 05:18 05:20 08:00 Temperature 98.1 F 98.1 F 98.2 F Pulse Rate 60 60 63 Respiratory 18 18 18 Rate Blood Pressure 91/56 Blood Pressure 91/56 100/61 [Right] O2 Sat by Pulse 96 95 Oximetry - Labs 04/12/17 10:21 04/11/17 05:50
--- NOTE | 2017-04-12 13:34 | Discharge Summary ---
Providers - Providers Date of Admission: 04/10/17 11:42 Attending physician: ANTHONY ALBERTO Primary care physician: ARSH ECKERT Hospitalization Condition: Good Disposition: DC-01 TO HOME OR SELFCARE Core Measure Documentation - Palliative Care Palliative Care/ Comfort Measures: Not Applicable - Core Measures Any of the following diagnoses?: none Exam - Constitutional Vitals: Temp Pulse Resp BP Pulse Ox 98.2 F 63 18 100/61 95 04/12/17 08:00 04/12/17 08:00 04/12/17 08:00 04/12/17 08:00 04/12/17 08:00 Plan Activity: other (low fat full liq diet. may d/c today if diet marco. advance to solid low fat diet at home in am. ) Weight Bearing Status: Partial Weight Bearing (5 lb wt limit x 2 wks) Diet: other Wound: keep clean and dry (x 5 days) Follow up with: ANTHONY ALBERTO MD [Staff Physician] - 04/17/17
[2017-04-12 16:28] VITALS: BP 101/66
--- NOTE | 2017-04-12 23:34 | Discharge Summary ---
DISCHARGE DIAGNOSIS: Acute cholecystitis. PROCEDURE WHILE IN HOSPITAL: Laparoscopic cholecystectomy. HOSPITAL COURSE: The patient is a pleasant 56-year-old who is admitted at this time for laparoscopic cholecystectomy. He underwent procedure without incident. His postoperative course was essentially stable. He did have extensive intraabdominal adhesions from the previous acute gallbladder attack, which required extensive lysis of omental and intestinal adhesions in the right upper quadrant prior to being able to complete the procedure. The patient was thus kept 23-hour observation overnight to assure no iatrogenic bowel injuries or internal bleeding. On postoperative day #1, his white count was noted to be quite elevated at 16,000, though clinically he was stable. All other postoperative lab work was essentially normal including LFTs, which included total bilirubin of 0.7, AST of 78, ALT of 79 and alkaline phosphatase of 62. Because of the elevated white count, the patient was kept overnight in over 24 hours. Currently, the patient is postoperative day #2, afebrile and doing quite well. His abdomen is soft and nontender. He is tolerating clear liquid diet without incident and has no complaints. The patient will thus be advanced to a full liquid low-fat diet this morning and will tentatively be discharged today if his diet is well tolerated. White count this morning has come back down to 10.9. The patient instructed to call me immediately if he has any evidence of nausea, vomiting, abdominal pain or fever. If not, the patient will advance himself to a solid low fat diet in the morning and follow up in the office next Saturday. JOB# [id number] PHILIP/CAIN
== END 2017-04-12 17:36 | disposition home or self-care (01) ==
LOC: OR 07:14 → 3B-SURG 11:42 → INTOOBSV 11:42
PROVIDERS: ADMIT Surgery; ATTEND Surgery
DX: K81.0 Acute cholecystitis (principal)
CPT/HCPCS: 36415; 47562; 80053; 82150; 85025; 88304; 96374; 96376; 99406; G0378; J0690; J1100; J1170; J1885; J2250; J2270; J2370; J2405; J2704; J2710; J7120

== ENCOUNTER 2017-09-16 08:30 | Outpatient (CLI) | payer OTHER ==
--- NOTE | 2017-09-16 09:21 | Cat Scan Report ---
CTA CHEST: HISTORY: Shortness of breath, chest pain. COMPARISON: none. TECHNIQUE: Helical CT in 1.25mm intervals following IV contrast. Pulmonary embolus protocol. Sagittal and coronal reformatted images. Rotational MIP images. FINDINGS: Contrast bolus is satisfactory. No pulmonary embolus is identified. Thyroid gland: Normal. Tracheobronchial tree: Normal. Esophagus: Normal. Heart: Heart size is borderline to mildly increased. Pericardium: Normal. Mediastinum: Normal. Lung [place]: Minimal emphysematous changes are identified in the upper lobes. No evidence for infiltrate, nodule or mass. Pleural Spaces: Normal. Musculoskeletal: Intact. Chronic superior endplate deformity at L1 with 10% loss of height is noted. No acute fracture identified. IMPRESSION: No evidence for pulmonary embolus. Borderline heart size. Minimal emphysematous changes.
== END 2017-09-16 08:31 | disposition home or self-care (01) ==
LOC: CT 08:30
PROVIDERS: ATTEND Internal Medicine Critical Care Medicine
DX: I26.99 Other pulmonary embolism without acute cor pulmonale (principal); R07.9 Chest pain, unspecified; F17.210 Nicotine dependence, cigarettes, uncomplicated
CPT/HCPCS: 71275; Q9967

== ENCOUNTER 2018-04-11 11:03 | Inpatient (IN) | payer OTHER ==
[2018-04-11] MEDS ORDERED: SUBLIMAZE IV ONE (12:03)
[2018-04-11] MEDS ORDERED: ZOFRAN IV ONE (12:03)
[2018-04-11] MEDS ORDERED: PEPCID IV ONE (12:03)
[2018-04-11] MEDS ORDERED: NACL 0.9% 500 ML 500 ML IV ONE (12:04)
--- NOTE | 2018-04-11 12:05 | Emergency Department Report ---
ED General Adult HPI - General Chief complaint: Chest Pain Stated complaint: CHEST PAIN Time Seen by Provider: 04/11/18 11:33 Source: patient, family, EMS (ems notes not available at time of chart dictation), gettering operator, RN notes reviewed, old records reviewed Mode of arrival: Stretcher Limitations: Language Barrier - History of Present Illness Initial comments: Assistant Athletic Trainer number: [id number] This is a 57-year-old gentleman. Patient has a history of tobacco abuse, cholecystectomy, chronic T11 compression fracture The patient is sent to the ER by his general surgeon, Dr. Ko for evaluation of abdominal pain. As per his general surgeon, the patient presented in his office today with a complaint of abdominal pain, appeared quite weak, doubled over, and appeared to be in significant distress. Upon arrival to the ER, the patient complains of epigastric and subxiphoid discomfort, right-sided pain, right-sided thoracic pain, shoulder pain, pl euritic pain, shortness of breath, malaise and fatigue. The symptoms started today. They worsen with deep inspiration and with moving his right arm and right leg. They do not radiate anywhere, he did at one point complain of abdominal pain, and do not appear to have believe infectious. On review of systems, the patient endorses chronic weakness in the right arm and right leg, which may be new, but he is not certain, one month ago, he reports vomiting blood, but no defecating blood, and no irritative or obstructive urinary symptoms. He was treated with supportive medication in the emergency room, and reported that he felt better. -: Gradual Location: chest, abdomen Severity scale (0 -10): 10 Quality: other Consistency: other Improves with: other Worsens with: other Associated Symptoms: chest pain, loss of appetite, malaise, nausea/vomiting (positive nausea, no vomiting), shortness of breath, weakness, other. denies: confusion - Related Data Previous Rx's Medication Instructions Recorded Last Taken Type Acetaminophen [Tylenol Extra 500 mg PO Q6H PRN #30 tablet 03/23/17 04/09/17 Rx Strength] HYDROcodone/APAP 5-325 [[place] 1 each PO Q4HR PRN #10 tablet 03/23/17 Unknown Rx 5/325] HYDROcodone/APAP 5-325 [[place] 1 each PO Q4HR PRN #20 tablet 04/12/17 Unknown Rx 5/325] Allergies Allergy/AdvReac Type Severity Reaction Status Date / Time No Known Allergies Allergy Verified 04/05/17 10:20 ED Review of Systems ROS: Stated complaint: CHEST PAIN Other details as noted in HPI Comment: Unobtainable due to pts medical conditions Constitutional: malaise Respiratory: cough Cardiovascular: chest pain Gastrointestinal: abdominal pain Neurological: weakness ED Past Medical Hx - Past Medical History Previous Medical History?: Yes Hx Congestive Heart Failure: No Hx Diabetes: No Hx Asthma: No Hx COPD: No Hx HIV: No Additional medical history: high cholesterol - Surgical History Past Surgical History?: Yes Additional Surgical History: gallbladder removal - Social History Smoking Status: Current Every Day Smoker Substance Use Type: None - Medications Home Medications: Home Medications Medication Instructions Recorded Confirmed Last Taken Type Acetaminophen [Tylenol Extra 500 mg PO Q6H PRN #30 tablet 03/23/17 04/10/17 04/09/17 Rx Strength] HYDROcodone/APAP 5-325 [[place] 1 each PO Q4HR PRN #10 tablet 03/23/17 04/05/17 Unknown Rx 5/325] HYDROcodone/APAP 5-325 [[place] 1 each PO Q4HR PRN #20 tablet 04/12/17 Unknown Rx 5/325] ED Physical Exam - General Limitations: Language Barrier General appearance: alert, anxious, in distress - Head Head exam: Present: atraumatic, normocephalic - Eye Eye exam: Present: normal appearance, EOMI. Absent: nystagmus - ENT ENT exam: Present: normal exam, normal orophraynx, mucous membranes moist, normal external ear exam - Neck Neck exam: Present: normal inspection, full ROM. Absent: tenderness, meningismus - Respiratory Respiratory exam: Present: normal lung sounds bilaterally. Absent: respiratory distress - Cardiovascular Cardiovascular Exam: Present: regular rate, normal rhythm, normal heart sounds. Absent: bradycardia, tachycardia, irregular rhythm, systolic murmur, diastolic murmur, rubs, gallop - GI/Abdominal GI/Abdominal exam: Present: soft, tenderness, other (there is minimal epigastric tenderness, with no rebound, guarding or peritoneal signs). Absent: distended, guarding, rebound, rigid, pulsatile mass - Rectal Rectal exam: Present: deferred - Extremities Exam Extremities exam: Present: normal inspection, full ROM, other (2+ pulses noted in the bilateral upper, lower extremities. Compartments soft. No long bony tenderness. The pelvis is stable.). Absent: pedal edema, joint swelling, calf tenderness - Back Exam Back exam: Present: normal inspection, full ROM. Absent: tenderness, CVA tenderness (R), paraspinal tenderness, vertebral tenderness - Neurological Exam Neurological exam: Present: alert, oriented X3, motor sensory deficit (4 out of 5 strength right upper, right lower extremity. 5 out of 5 strength left upper, left lower extremity. Sensation intact to light touch in 4 extremities), other (there is no facial droop. The tongue is midline. Extraocular movements are intact. Shoulder shrug is intact bilaterally.) - Psychiatric Psychiatric exam: Present: anxious - Skin Skin exam: Present: warm, dry, intact, normal color. Absent: rash ED Course Vital Signs 04/11/18 04/11/18 04/11/18 11:14 11:15 11:30 Temperature Pulse Rate 67 Respiratory 16 Rate Blood Pressure 112/71 110/76 Blood Pressure [Right] O2 Sat by Pulse 98 98 96 Oximetry 04/11/18 04/11/18 04/11/18 11:45 11:49 12:00 Temperature 98.9 F Pulse Rate 66 66 Respiratory 16 25 H Rate Blood Pressure 113/78 118/81 Blood Pressure [Right] O2 Sat by Pulse 97 96 Oximetry 04/11/18 04/11/18 04/11/18 12:15 12:30 12:45 Temperature Pulse Rate 68 64 65 Respiratory 12 18 18 Rate Blood Pressure 114/79 114/76 102/70 Blood Pressure [Right] O2 Sat by Pulse 96 98 99 Oximetry 04/11/18 04/11/18 04/11/18 13:00 13:15 13:30 Temperature Pulse Rate 64 62 64 Respiratory 17 25 H 22 Rate Blood Pressure 112/70 111/77 106/75 Blood Pressure [Right] O2 Sat by Pulse 98 98 98 Oximetry 04/11/18 15:24 Temperature Pulse Rate 63 Respiratory 18 Rate Blood Pressure Blood Pressure 108/75 [Right] O2 Sat by Pulse 97 Oximetry - Reevaluation(s) Reevaluation #1: 04/11/18 13:46 Differential diagnosis, including but not limited to: Pulmonary embolus, aortic disease, acute coronary syndrome, GERD, gastritis, hiatal hernia, thoracic infection, intra-abdominal infection, subacute stroke, cervical radiculopathy Assessment and plan: 57-year-old gentleman with improving abdominal pain, pleuritic chest pain, reported history of subacute chronic right-sided weakness. Vital signs appear to be stable. Screening laboratory studies unremarkable. Initial EKG is nonspecific, although not consistent with ST elevation myocardial infarction. Has endorsed right-sided chest discomfort and weakness for months, therefore not a TPA candidate, and therefore does not require emergent endovascular imaging. CT scan of the brain, chest, abdomen and pelvis pending. Apparently feels improved after IV pain medications. Discussed plan of care with patient using freight agent, and indicated plan for admission with initial diagnostics have resulted, and the patient verbalized that he is amenable to this plan of care. Reevaluation #2: 04/11/18 14:24 Patient appears to be in no discomfort and is noted to be playing at on a cellular phone at this time. Reevaluation #3: 04/11/18 14:58 CT scan of brain is negative. CT scan of the chest is negative. CT scan of the abdomen and pelvis is negative. EKG #2 appears to be unchanged from prior. Patient resting comfortable, and in no acute distress. The Hospital physician is paged. Reevaluation #4: 04/11/18 15:34 Patient continues to be resting comfortably. The Hospital physician, Dr. De La Cruz accepts to the medical service ED Medical Decision Making - Lab Data Result diagrams: 04/11/18 12:34 04/11/18 12:34 Vital Signs 04/11/18 04/11/18 04/11/18 11:14 11:15 11:30 Temperature Pulse Rate 67 Respiratory 16 Rate Blood Pressure 112/71 110/76 O2 Sat by Pulse 98 98 96 Oximetry 04/11/18 04/11/18 11:45 11:49 Temperature 98.9 F Pulse Rate 66 Respiratory 16 Rate Blood Pressure 113/78 O2 Sat by Pulse 97 Oximetry Lab Results 04/11/18 04/11/18 04/11/18 Range/Units 12:34 12:34 12:34 WBC 9.4 (4.5-11.0) K/mm3 RBC 4.51 (3.65-5.03) M/mm3 Hgb 14.7 (11.8-15.2) gm/dl Hct 42.5 (35.5-45.6) % MCV 94 (84-94) fl MCH 33 H (28-32) pg MCHC 35 H (32-34) % RDW 12.8 L (13.2-15.2) % Plt Count 258 (140-440) K/mm3 Lymph % (Auto) 27.0 (13.4-35.0) % [place] % (Auto) 6.3 (0.0-7.3) % Eos % (Auto) 2.6 (0.0-4.3) % Baso % (Auto) 1.0 (0.0-1.8) % Lymph # 2.5 (1.2-5.4) K/mm3 [place] # 0.6 (0.0-0.8) K/mm3 Eos # 0.2 (0.0-0.4) K/mm3 Baso # 0.1 (0.0-0.1) K/mm3 Seg Neutrophils % 63.1 (40.0-70.0) % Seg Neutrophils # 5.9 (1.8-7.7) K/mm3 PT 12.6 (12.2-14.9) Sec. INR 0.90 (0.87-1.13) APTT 31.4 (24.2-36.6) Sec. Sodium 140 (137-145) mmol/L Potassium 4.2 (3.6-5.0) mmol/L Chloride 102.0 (98-107) mmol/L Carbon Dioxide 25 (22-30) mmol/L Anion Gap 17 mmol/L BUN 17 (9-20) mg/dL Creatinine 0.6 L (0.8-1.5) mg/dL Estimated GFR > 60 ml/min BUN/Creatinine Ratio 28 % Glucose 118 H (75-100) mg/dL Lactic Acid (0.7-2.0) mmol/L Calcium 9.0 (8.4-10.2) mg/dL Total Bilirubin 0.60 (0.1-1.2) mg/dL AST 14 (5-40) units/L ALT 14 (7-56) units/L Alkaline Phosphatase 68 (35-129) units/L Total Creatine Kinase 83 (55-170) units/L Troponin T < 0.010 (0.00-0.029) ng/mL Total Protein 6.5 (6.3-8.2) g/dL Albumin 4.3 (3.9-5) g/dL Albumin/Globulin Ratio 2.0 % Lipase 25 (13-60) units/L Urine Color (Yellow) Urine Turbidity (Clear) Urine pH (5.0-7.0) Ur Specific [place] (1.003-1.030) Urine Protein (Negative) mg/dL Urine Glucose (UA) (Negative) mg/dL Urine Ketones (Negative) mg/dL Urine Blood (Negative) Urine Nitrite (Negative) Urine Bilirubin (Negative) Urine Urobilinogen (<2.0) mg/dL Ur Leukocyte Esterase (Negative) Urine WBC (Auto) (0.0-6.0) /HPF Urine RBC (Auto) (0.0-6.0) /HPF U Epithel Cells (Auto) (0-13.0) /HPF Urine Mucus /HPF 04/11/18 04/11/18 Range/Units 12:34 Unknown WBC (4.5-11.0) K/mm3 RBC (3.65-5.03) M/mm3 Hgb (11.8-15.2) gm/dl Hct (35.5-45.6) % MCV (84-94) fl MCH (28-32) pg MCHC (32-34) % RDW (13.2-15.2) % Plt Count (140-440) K/mm3 Lymph % (Auto) (13.4-35.0) % [place] % (Auto) (0.0-7.3) % Eos % (Auto) (0.0-4.3) % Baso % (Auto) (0.0-1.8) % Lymph # (1.2-5.4) K/mm3 [place] # (0.0-0.8) K/mm3 Eos # (0.0-0.4) K/mm3 Baso # (0.0-0.1) K/mm3 Seg Neutrophils % (40.0-70.0) % Seg Neutrophils # (1.8-7.7) K/mm3 PT (12.2-14.9) Sec. INR (0.87-1.13) APTT (24.2-36.6) Sec. Sodium (137-145) mmol/L Potassium (3.6-5.0) mmol/L Chloride (98-107) mmol/L Carbon Dioxide (22-30) mmol/L Anion Gap mmol/L BUN (9-20) mg/dL Creatinine (0.8-1.5) mg/dL Estimated GFR ml/min BUN/Creatinine Ratio % Glucose (75-100) mg/dL Lactic Acid 0.90 (0.7-2.0) mmol/L Calcium (8.4-10.2) mg/dL Total Bilirubin (0.1-1.2) mg/dL AST (5-40) units/L ALT (7-56) units/L Alkaline Phosphatase (35-129) units/L Total Creatine Kinase (55-170) units/L Troponin T (0.00-0.029) ng/mL Total Protein (6.3-8.2) g/dL Albumin (3.9-5) g/dL Albumin/Globulin Ratio % Lipase (13-60) units/L Urine Color Yellow (Yellow) Urine Turbidity Clear (Clear) Urine pH 8.0 H (5.0-7.0) Ur Specific [place] 1.012 (1.003-1.030) Urine Protein <15 mg/dl (Negative) mg/dL Urine Glucose (UA) Neg (Negative) mg/dL Urine Ketones Neg (Negative) mg/dL Urine Blood Neg (Negative) Urine Nitrite Neg (Negative) Urine Bilirubin Neg (Negative) Urine Urobilinogen < 2.0 (<2.0) mg/dL Ur Leukocyte Esterase Neg (Negative) Urine WBC (Auto) < 1.0 (0.0-6.0) /HPF Urine RBC (Auto) 2.0 (0.0-6.0) /HPF U Epithel Cells (Auto) < 1.0 (0-13.0) /HPF Urine Mucus Few /HPF - EKG Data -: EKG Interpreted by Pr EKG shows normal: sinus rhythm Rate: normal - EKG Data 04/11/18 13:48 EKG #1 shows normal sinus, normal axis, normal intervals, nonspecific ST abnormality in the anteroseptal leads, motion artifact, abnormal EKG, this EKG is not morphologically consistent with ST elevation myocardial infarction, but compared to prior EKG from 2017, curved ST abnormalities in V2, V3 appeared to be slightly more prominent. EKG #2 demonstrates sinus, 64 bpm, normal axis, normal intervals, improvement in anteroseptal abnormalities in the V2 V3 distribution, there is nonspecific ST abnormalities in the inferior leads, unchanged from prior EKGs, this EKG is not consistent with an ST elevation myocardial infarction. - Radiology Data Radiology results: report reviewed, image reviewed X-ray of the chest is negative for acute disease Critical care attestation.: If time is entered above; I have spent that time in minutes in the direct care of this critically ill patient, excluding procedure time. ED Disposition Clinical Impression: Chest pain, History of weakness Disposition: OP ADMIT IP TO THIS HOSP Is pt being admited?: Yes Does the pt Need Aspirin: Yes Condition: Good Instructions: Chest Pain (ED) Referrals: PRIMARY CARE, [Primary Care Provider] - 3-5 Days
--- NOTE | 2018-04-11 12:38 | XRay Report ---
AP CHEST: HISTORY: chest pain AP view of the chest demonstrates a normal mediastinal and cardiac contour with clear lungs and normal bony and soft tissue structures. IMPRESSION: Unremarkable AP chest.
[2018-04-11 12:50] LABS: Basophils # (Auto) 0.1 K/mm3 (0.0-0.1); Eosinophils # (Auto) 0.2 K/mm3 (0.0-0.4); Eosinophils % (Auto) 2.6 % (0.0-4.3); Hematocrit 42.5 % (35.5-45.6); Hemoglobin 14.7 gm/dl (11.8-15.2); Lymphocytes # (Auto) 2.5 K/mm3 (1.2-5.4); Mean Corpuscular HGB Conc 35 % (32-34); Mean Corpuscular Volume 94 fl (84-94); Monocytes # (Auto) 0.6 K/mm3 (0.0-0.8); Monocytes % (Auto) 6.3 % (0.0-7.3); Platelet Count 258 K/mm3 (140-440); Red Blood Count 4.51 M/mm3 (3.65-5.03); Red Cell Distribution Width 12.8 % (13.2-15.2)
[2018-04-11 13:04] LABS: INR 0.9 (0.87-1.13)
[2018-04-11 13:05] LABS: Partial Thromboplastin Time 31.4 Sec. (24.2-36.6)
[2018-04-11 13:13] LABS: Alanine Aminotransferase 14 units/L (7-56); Albumin 4.3 g/dL (3.9-5); BUN/Creatinine Ratio 28; Blood Urea Nitrogen 17 mg/dL (9-20); Hemolysis Index 8
[2018-04-11 13:29] LABS: Bilirubin,Urine NEG (Negative); Blood,Urine NEG (Negative); Color,Urine Yellow (Yellow); Mucus,Urine FEW /HPF; Protein,Urine <15 mg/dL mg/dL (Negative); Urobilinogen,Urine < 2.0 mg/dL (<2.0); WBC,Urine < 1.0 /HPF (0.0-6.0)
--- NOTE | 2018-04-11 14:35 | Cat Scan Report ---
CT HEAD WITHOUT CONTRAST: HISTORY: right sided weakness. TECHNIQUE: Sequential 2.5mm CT images. COMPARISON: none. FINDINGS: Cerebral Parenchyma: Within normal limits. Cerebellum: Within normal limits. Brainstem: Within normal limits. Ventricles: Normal. Sella: Normal. Extra-axial spaces: Normal. Basal Cisterns: Normal. Intracranial Hemorrhage: None. Midline Shift: None. Calvarium: Normal. Sinuses: Normal. Mastoid Air Cells: Normal. Visualized Orbits: Normal. IMPRESSION: Cranial CT scan within normal limits.
--- NOTE | 2018-04-11 14:49 | Cat Scan Report ---
CT ABDOMEN PELVIS WITH CONTRAST: HISTORY: abdominal pain. COMPARISON: none. TECHNIQUE: Helical CT in 1.25mm intervals following IV contrast. Sagittal and coronal reconstructions. FINDINGS: Lung bases: Normal. Liver: Normal. Biliary system: Cholecystectomy. Pancreas: Normal. Spleen: Normal. Kidneys/ureters/bladder: There is minor cortical scarring in the lateral right kidney. Otherwise the kidneys and collecting systems are within normal limits. Adrenal glands: Normal. Aorta: Normal. Intestines: Normal. Appendix: Normal. Pelvic viscera: Normal. Ascites: None. Adenopathy: None. Musculoskeletal: Normal. IMPRESSION: No acute abdominal process is identified.
--- NOTE | 2018-04-11 14:51 | Cat Scan Report ---
CTA CHEST: HISTORY: Chest pain. COMPARISON: none. TECHNIQUE: Helical CT in 1.25mm intervals following IV contrast. Pulmonary embolus protocol. Sagittal and coronal reformatted images. Rotational MIP images. FINDINGS: Contrast bolus is satisfactory. No pulmonary embolus is identified. Thyroid gland: Normal. Tracheobronchial tree: Normal. Esophagus: Normal. Heart: Normal. Pericardium: Normal. Mediastinum: Normal. Lung [place]: There are a few scattered subpleural blebs at the lung apices which could represent mild emphysematous changes. No evidence for mass, infiltrate or interstitial lung disease. Pleural Spaces: Normal. Musculoskeletal: Intact. Mild scoliosis is noted. IMPRESSION: No evidence for pulmonary embolus. Mild emphysematous changes.
[2018-04-11] MEDS ORDERED: BABY ASPIRIN PO ONE (14:58)
[2018-04-11] MEDS ORDERED: NACL 0.9% 1000 ML 1,000 ML ONE (16:50)
[2018-04-11] MEDS ORDERED: NACL 0.9% 1000 ML 1,000 ML IV ONE (17:01)
[2018-04-11] MEDS ORDERED: MORPHINE IV PRN (23:57)
--- NOTE | 2018-04-12 00:12 | Event Note ---
Date: 04/11/18 See Dictated H/p in reports Chest pain r/o IA
[2018-04-12] MEDS ORDERED: SODIUM CHLORIDE FLUSH SYRINGE 10 ML IV PRN (00:15)
[2018-04-12] MEDS ORDERED: PERCOCET 5/325 PO PRN (00:15)
[2018-04-12] MEDS ORDERED: ZOFRAN IV PRN (00:15)
[2018-04-12] MEDS ORDERED: TYLENOL PO PRN (00:15)
[2018-04-12] MEDS ORDERED: DILAUDID IV PRN (00:15)
--- NOTE | 2018-04-12 06:44 | History and Physical Report ---
CHIEF COMPLAINT: Left-sided chest pain and epigastric pain. HISTORY OF PRESENT ILLNESS: A 57-year-old male went to his surgeon for previous surgery one year ago. The patient had epigastric pain and retrosternal chest pain. The patient was sent from the surgeon's office here for evaluation of chest pain. Chest pain, worse with deep inspiration. Also, the patient has some other nonspecific complaints. No nausea, no vomiting, no diaphoresis. No shortness of breath. Chest pain is nonradiating, mainly is epigastric and retrosternal chest pain. PAST MEDICAL HISTORY: No significant past medical history except for hyperlipidemia. PAST SURGICAL HISTORY: Gallbladder removal. SOCIAL HISTORY: Smokes over a pack a day. FAMILY HISTORY: None. REVIEW OF SYSTEMS: Significant for epigastric and left-sided chest pain. Other review of systems are negative. PHYSICAL EXAMINATION: GENERAL: Middle-aged male, cooperative during examination. VITAL SIGNS: Temperature is 98.2, pulse is 113, respirations 13, blood pressure 121/61. HEENT: Unremarkable. Pupils equal and reactive. NECK: Supple, no lymphadenopathy, no thyromegaly. LUNGS: Clear to auscultation and percussion. Good air entry. CARDIOVASCULAR SYSTEM: S1, S2 heard. No gallop, no murmur, no rub. Apical impulse in left fifth intercostal space in midclavicular line. ABDOMEN: Soft and benign. No hepatosplenomegaly, no guarding, no rigidity. Hernial orifices are normal. EXTREMITIES: Good pedal pulses. No pedal edema. CENTRAL NERVOUS SYSTEM: Alert and oriented x 4, nonfocal exam. LABORATORY DATA: Significant for normal white count, and normal hemoglobin and hematocrit. MCV slightly high. MCH is 33 high. MCHC is 35, slightly high. Electrolytes are normal. Glucose is 118. Urine is normal. DIAGNOSTIC DATA: EKG shows normal sinus rhythm, heart rate of 64 per minute, no acute ST-T wave changes. Slight ST elevation in the V1, V2, V3. CT angiogram: No evidence of pulmonary embolus. Mild emphysematous changes on CT angiogram of the chest. CT of the abdomen, no acute abdominal process is identified. Head CT was normal. Chest x-ray is unremarkable. ASSESSMENT AND PLAN: 1. Left-sided chest pain, rule out myocardial infarction protocol. The patient Lexiscan ordered. Serial troponins ordered. 2. Gastroesophageal reflux disease. The patient initiated on Protonix. 3. Deep venous thrombosis prophylaxis, Lovenox 40 mg subcutaneous daily. 4. Possible discharge tomorrow that is 04/12/2018 if Lexiscan is negative. JOB# [id number]/NTS
[2018-04-12] MEDS ORDERED: LEXISCAN IV ONE ×2 (08:10→08:22)
[2018-04-12] MEDS ORDERED: SODIUM CHLORIDE FLUSH SYRINGE 10 ML IV SCH (10:00)
[2018-04-12] MEDS ORDERED: PEPCID IV SCH (10:00)
[2018-04-12] MEDS ORDERED: PNEUMOVAX 23 IM ONE (12:00)
[2018-04-12 13:59] VITALS: BP 105/73
--- NOTE | 2018-04-12 14:40 | Discharge Summary ---
Providers - Providers Date of Admission: 04/11/18 15:34 Date of discharge: 04/12/18 Attending physician: FUNMILAYO HILTON Primary care physician: RADHA PONCE MD Hospitalization Condition: Good Hospital course: Patient is 57-year-old with hyperlipidemia. He presented with chest and epigastric pain. Patient was evaluated in Emergency Department. Initial troponin was normal. He was given Aspirin and admitted to rule out acute coronary syndrome. Stress test was done which was negative. Chest pain determined to be noncardiac and due to GERD, so he was discharged home. Disposition: DC- TO HOME OR SELFCARE - Discharge Diagnoses (1) GERD (gastroesophageal reflux disease) Status: Acute (2) Chest pain Status: Acute Core Measure Documentation - Palliative Care Palliative Care/ Comfort Measures: Not Applicable - Core Measures Any of the following diagnoses?: none Exam - Constitutional Vitals: Temp Pulse Resp BP Pulse Ox 97.6 F 83 16 105/73 98 04/12/18 08:13 04/12/18 11:00 04/12/18 08:13 04/12/18 11:00 04/12/18 08:13 Plan Activity: no restrictions Diet: low cholesterol, low salt Additional Instructions: 1.Follow up with PCP or [facility] in 1 week Follow up with: PRIMARY CAREMD [Primary Care Provider] - 3-5 Days Prescriptions: Famotidine [Pepcid] 20 mg PO BID #30 tablet
--- NOTE | 2018-04-17 11:38 | Query- Chest Pain ---
Abiel Seymour____Breana Date:___04/17/2018 Undergraduate Advisor/CDS:___Sarah/Tanja Phone#:___[phone] Exercise your independent professional judgment when responding to query. Questions asked do not imply a particular answer is desired or expected. We greatly appreciate your clarification on this issue. Clinical Documentation States: This is a 57-year-old gentleman with a complaint of abdominal pain, appeared quite weak, doubled over, and appeared to be in significant distress. The patient complains of epigastric and subxiphoid discomfort, right-sided pain, right-sided thoracic pain, shoulder pain, pleuritic pain, shortness of breath, malaise and fatigue. The symptoms started today. They worsen with deep inspiration and with moving his right arm and right leg. Clinical Impression: Chest pain Please document the etiology of Chest Pain: [ ] Myocardial Infarction [ ] Pneumonia [ ] Mediastinitis [ ] Costochondritis [ ] Pulmonary Embolism [ ] Coronary Artery Disease [x ] GERD [ ] Other: [ ] Comment/Explanation: Present on Admission: [x ] Yes (Y) [ ] Clinically undeterminable (W) [ ] No(N) Please document response in your Progress Notes and/or Discharge Summary and indicate if the condition was present on admission. LOU
== END 2018-04-12 16:46 | disposition home or self-care (01) | DRG 392 ==
LOC: ED 11:03 → 4A 15:34
PROVIDERS: ADMIT Internal Medicine; ATTEND Internal Medicine
PROC: 3E0234Z Introduction of Serum, Toxoid and Vaccine into Muscle, Percutaneous Approach (ICD-10-PCS; principal; 2018-04-12)
DX: K21.9 Gastro-esophageal reflux disease without esophagitis (principal); M48.54XA Collapsed vertebra, not elsewhere classified, thoracic region, initial encounter for fracture; R07.9 Chest pain, unspecified; Z23 Encounter for immunization; Z90.49 Acquired absence of other specified parts of digestive tract; F17.210 Nicotine dependence, cigarettes, uncomplicated; Z79.899 Other long term (current) drug therapy
CPT/HCPCS: 36415; 70450; 71045; 71275; 74177; 78452; 80053; 81001; 82140; 82550; 83690; 84484; 85025; 85610; 85730; 90732; 93005; 93010; 93017; 96361; 96374; 96375; 99406; G0378; A9502; J2270; J2405; J2785; J3010; J7030; J7040; Q9967